=== PATIENT | female | born 1990 | race Caucasian/White ===

== ENCOUNTER 2021-01-09 17:09 | Emergency (ER) | payer MEDICAID ==
[~2021-01-09] VITALS: Ht 157.5 cm; Wt 97.0 kg
--- NOTE | 2021-01-09 18:26 | ED.ADGEN ---
Past Medical History Past Surgical History: No Surgical History General Adult EDM: Chief Complaint: VAGINAL BLEEDING HPI: HPI: Patient is a 30 year old G4, P4 at 6 weeks with vaginal bleeding. Patient says she had vaginal bleeding gradually decreased but this morning noticed she had heavy bleeding again. Patient states she felt several pads but is unable to say how many an hour. Says has been bright red blood without clots. Is having mild bilateral abdominal cramping. Patient denies having any intercourse since delivery. States she spontaneous vaginal delivery at term no complications during the . Denies any vaginal discharge. Denies any lightheadedness, weakness, palpitations. Patient states the bleeding has decreased now. Review of Systems: Review of Systems: All other systems within normal limits except for as noted in the HPI Allergies: Allergies: Allergies Coded Allergies Type Severity Reaction Last Updated Verified No Known Drug Allergies 01/09/21 No Physical Exam: PE: Constitutional: Well developed, well nourished, no acute distress, non-toxic appearance. [] HENT: Normocephalic, atraumatic, bilateral external ears normal, nose normal. [] Eyes: PERRLA, conjunctiva normal, no discharge. [] Neck: No rigidity, supple, no stridor. [] Cardiovascular: Regular rate and rhythm, brisk cap refill [] Lungs & Thorax: Non labored symmetric respirations, no tachypnea or respiratory distress [] Abdomen: Soft, nondistended. Skin: Warm, dry, no erythema, no rash. [] Back: Unremarkable Extremities: No deformities, range of motion grossly intact, no lower extremity edema [] Neurologic: Alert and oriented X 3, no focal deficits noted. [] Psychologic: Affect normal, judgement normal, mood normal. [] Current Patient Data: Labs: Laboratory Tests Test 01/09/21 19:15 Urine Collection Type Unknown Urine Color Red Urine Clarity Turbid Urine pH (<5.0-8.0) Urine Specific Howe (1.000-1.030) Urine Protein mg/dL (NEG-TRACE) Urine Glucose (UA) mg/dL (NEG) Urine Ketones (Stick) mg/dL (NEG) Urine Blood (NEG) Urine Nitrite (NEG) Urine Bilirubin (NEG) Urine Urobilinogen Dipstick mg/dL (0.2 mg/dL) Urine Leukocyte Esterase (NEG) Urine RBC Tntc /HPF (0-2) Urine WBC 5-10 /HPF (0-4) Urine Squamous Epithelial Cells Many /LPF Urine Bacteria Moderate /HPF (0-FEW) Urine Mucus Marked /LPF Urine Test Negative (NEG) Vital Signs: Vital Signs Date Time Temp Pulse Resp B/P (MAP) Pulse Ox O2 Delivery O2 Flow Rate FiO2 01/09/21 18:07 98.5 63 15 118/75 (89) 100 Room Air 98.5 EKG: EKG: [] Heart Score: C/O Chest Pain: No Risk Factors: Risk Factors: DM, Current or recent (<one month) smoker, HTN, HLP, family history of CAD, obesity. Risk Scores: Score 0 - 3: 2.5% MACE over next 6 weeks - Discharge Home Score 4 - 6: 20.3% MACE over next 6 weeks - Admit for Clinical Observation Score 7 - 10: 72.7% MACE over next 6 weeks - Early Invasive Strategies Radiology/Procedures: Radiology/Procedures: [facility] [address] [place], [place] [id number] IMAGING REPORT Signed PATIENT: CRISTINA CORONADO ACCOUNT: [id number] : 1990 LOCATION: ER AGE: 30 SEX: F EXAM STATUS: REG ER ORD. PHYSICIAN: DONOVAN LEDEZMA MD REASON: Menorrhagia, 6 wks post // WAITING ON URINE PROCEDURE: PELVIS W/TV EXAM: ULTRASOUND PELVIS INDICATION: Reason: Menorrhagia, 6 wks post COMPARISON: None available. TECHNIQUE: Transvaginal sonography was performed. FINDINGS: The uterus measures 9.7 x 6.1 x 5.2 cm. Endometrium measures 5.7 mm in thickness. The right ovary measures 2.9 x 2.5 x 2.7 cm. The left ovary measures 2.7 x 2.6 x 2.2 cm. Blood flow identified in the right and left ovaries. Multiple follicles identified in the right and left ovaries. Cystic structure identified in the right adnexa measuring 2.1 cm could be a cyst or follicle. IMPRESSION: 2.1 cm cyst or follicle in the right adnexa. Otherwise unremarkable exam. Electronically signed by: Maurizio Guan MD (01/09/2021 9:01 PM) [id number] DICTATED and SIGNED BY: MAURIZIO GUAN MD DATE: 01/09/[id number] 0 [] Course & Med Decision Making: Course & Med Decision Making Pertinent Labs and Imaging studies reviewed. (See chart for details) Patient has single ovarian cyst and no retained products of conception. P atient's bleeding is stopped in the emergency department. Patient states that prior to the bleeding she was doing some heavy lifting. Discussed with patient she likely had a small knot above left that the Valsalva maneuver pushed through. [] Dragon Disclaimer: Dragon Disclaimer: This electronic medical record was generated, in whole or in part, using a voice recognition dictation system. Departure Departure Impression: Primary Impression: Vagina bleeding Disposition: HOME / SELF CARE / HOMELESS Condition: STABLE Referrals: NO PCP (PCP) [facility] Patient Instructions: Uterine Bleeding, Dysfunctional, [id number] DONOVAN LEDEZMA MD Jan 09, 2021 18:26
[2021-01-09 19:47] LABS: CLARITY,URINE TURBID
[2021-01-09 19:53] LABS: COLOR,URINE RED; RBC,URINE TNTC /HPF (0-2)
[2021-01-09 19:57] LABS: BACTERIA,URINE MODERATE /HPF (0-FEW)
[2021-01-09 20:18] LABS: U PREG PATIENT NEGATIVE (NEG)
--- NOTE | 2021-01-09 21:04 | RAD ---
EXAM: ULTRASOUND PELVIS INDICATION: Reason: Menorrhagia, 6 wks post COMPARISON: None available. TECHNIQUE: Transvaginal sonography was performed. FINDINGS: The uterus measures 9.7 x 6.1 x 5.2 cm. Endometrium measures 5.7 mm in thickness. The right ovary justin sures 2.9 x 2.5 x 2.7 cm. The left ovary measures 2.7 x 2.6 x 2.2 cm. Blood flow identified in the ri ght and left ovaries. Multiple follicles identified in the right and left ovaries. Cystic structure i dentified in the right adnexa measuring 2.1 cm could be a cyst or follicle. IMPRESSION: 2.1 cm cyst or follicle in the right adnexa. Otherwise unremarkable exam. Electronically signed by: Maurizio Guan MD (01/09/2021 9:01 PM) [id number]
[2021-01-09 22:00] VITALS: BP 122/80
== END 2021-01-09 22:00 | disposition home or self-care (01) ==
LOC: ER 17:09
DX: O72.1 Other immediate postpartum hemorrhage (principal)
CPT/HCPCS: 76830; 76856; 81001; 81025; 87086; 99284

== ENCOUNTER 2021-06-02 18:12 | Emergency (ER) | payer MEDICAID ==
[~2021-06-02] VITALS: Ht 157.5 cm; Wt 96.8 kg
[2021-06-02 18:22] VITALS: BP 105/79
[2021-06-02] MEDS ORDERED: ONDA4TAB12 PO (18:58)
--- NOTE | 2021-06-02 18:58 | ED.ADGEN ---
Past Medical History Past Surgical History: No Surgical History Smoking Status: Current Every Day Smoker Alcohol Use: None General Adult EDM: Chief Complaint: NAUSEA/VOMITING/DIARRHEA HPI: HPI: Patient is a 31 year old female coming in for vomiting and diarrhea. Patient states she has not established the past few hours. Patient states that she ate some likely undercooked fish at work just prior to symptoms starting. States she has some intermittent crampy abdominal pain but none right now. Patient is here because she would like a note for work. Patient is declining any work-up states she feels better and feels that she knows what the cause of her symptoms are. Patient took her last Zofran this morning. Denies any respiratory symptoms or fevers. Denies any hematemesis or bloody stools. Review of Systems: Review of Systems: All other systems within normal limits except for as noted in the HPI Allergies: Allergies: Allergies Coded Allergies Type Severity Reaction Last Updated Verified No Known Drug Allergies 01/09/21 No Physical Exam: PE: Constitutional: Well developed, well nourished, no acute distress, non-toxic appearance. [] HENT: Normocephalic, atraumatic, bilateral external ears normal, nose normal. [] Eyes: PERRLA, conjunctiva normal, no discharge. [] Neck: No rigidity, supple, no stridor. [] Cardiovascular: Regular rate and rhythm, brisk cap refill [] Lungs & Thorax: Non labored symmetric respirations, no tachypnea or respiratory distress [] Abdomen: Soft, nondistended, nontender, no guarding palpation, negative Zuluaga's. No McBurney point tenderness. Skin: Warm, dry, no erythema, no rash. [] Back: Unremarkable Extremities: No deformities, range of motion grossly intact, no lower extremity edema [] Neurologic: Alert and oriented X 3, no focal deficits noted. [] Psychologic: Affect normal, judgement normal, mood normal. [] Current Patient Data: Vital Signs: Vital Signs Date Time Temp Pulse Resp B/P (MAP) Pulse Ox O2 Delivery O2 Flow Rate FiO2 06/02/21 18:22 98.0 68 18 105/79 (88) 96 Room Air 98.0 EKG: EKG: [] Heart Score: C/O Chest Pain: No Risk Factors: Risk Factors: DM, Current or recent (<one month) smoker, HTN, HLP, family history of CAD, obesity. Risk Scores: Score 0 - 3: 2.5% MACE over next 6 weeks - Discharge Home Score 4 - 6: 20.3% MACE over next 6 weeks - Admit for Clinical Observation Score 7 - 10: 72.7% MACE over next 6 weeks - Early Invasive Strategies Radiology/Procedures: Radiology/Procedures: [] Course & Med Decision Making: Course & Med Decision Making Patient is well-appearing with stable vital signs. Patient states her symptoms are resolved but is unable to return to work without a doctor's note. Dragon Disclaimer: Dragon Disclaimer: This electronic medical record was generated, in whole or in part, using a voice recognition dictation system. Departure Departure Impression: Primary Impression: Nausea vomiting and diarrhea Disposition: 01 HOME / SELF CARE / HOMELESS Condition: STABLE Referrals: NO PCP (PCP) Patient Instructions: Diet for Diarrhea, Adult Scripts Ondansetron (ONDANSETRON ODT) 4 Mg Tab.rapdis 1 TAB PO PRN Q6-8HRS PRN for NAUSEA, #16 TAB Prov: DONOVAN LEDEZMA MD 06/02/21 DONOVAN LEDEZMA MD Jun 02, 2021 18:58
== END 2021-06-02 19:14 | disposition home or self-care (01) ==
LOC: ER 18:12
DX: R11.2 Nausea with vomiting, unspecified (principal); R19.7 Diarrhea, unspecified; F17.200 Nicotine dependence, unspecified, uncomplicated
CPT/HCPCS: 99283